=== PATIENT | male | born 1945 | race Caucasian/White ===

== ENCOUNTER 2018-06-19 16:50 | Inpatient (IN) | payer MEDICARE ==
[~2018-06-19] VITALS: Ht 172.7 cm; Wt 69.4 kg
[~2018-06-19 16:50] MED LIST: ASPI-515 PO; BIMA2.5D EACHEYE; CYCL1DRO OP; LISI5TAB7 PO; METO25TA35 PO; SIMV40TA PO; TICA90TA PO
[2018-06-19] MEDS ORDERED: ASPIRIN 81 MG TABLET CHEW ONE (17:43)
[2018-06-19 17:48] LABS: BASOPHILS # (AUTO) 0.06 x10^3/uL (0-0.1); BASOPHILS % (AUTO) 1 % (0-1); EOSINOPHILS # (AUTO) 0.12 x10^3/uL (0-0.4); EOSINOPHILS % (AUTO) 2 % (1-7); LYMPHOCYTES # (AUTO) 2.13 x10^3/uL (1-3.4); LYMPHOCYTES % (AUTO) 38 % (22-44); MD NO; MEAN CORPUSCULAR HEMOGLOBIN 33.1 pg (27.5-34.5); MEAN CORPUSCULAR VOLUME 97.4 fL (81-97); MEAN PLATELET VOLUME 9.4 fL (7.4-10.4); MONOCYTES # (AUTO) 0.53 x10^3/uL (0.2-0.8); MONOCYTES % (AUTO) 10 % (2-9); NEUTROPHILS # (AUTO) 2.77 x10^3/uL (1.8-6.8); NEUTROPHILS % (AUTO) 49 % (42-75); PLATELET COUNT 180 x10^3/uL (130-400); RED BLOOD COUNT 4.52 x10^6/uL (4.38-5.82)
[2018-06-19 18:00] LABS: ALANINE AMINOTRANSFERASE 25 U/L (12-78); ANION GAP 10 mmol/L (5-15); CALCIUM 8.9 mg/dL (8.5-10.1); CHLORIDE 103 mmol/L (98-107); CREATININE 1.31 mg/dL (0.7-1.3)
[2018-06-19] MEDS ORDERED: ASPIRIN 81 MG TABLET CHEW PO ONE (18:00)
[2018-06-19 18:04] LABS: ALKALINE PHOSPHATASE 68 U/L (45-117); BILIRUBIN,TOTAL 0.4 mg/dL (0.2-1.0); TOTAL PROTEIN 7.3 g/dL (6.4-8.2); TROPONIN I < 0.015 ng/mL (0.000-0.045)
[2018-06-19] MEDS ORDERED: SODIUM CHLORIDE 0.9% 1,000 ML IV SCH (19:11)
[2018-06-19] MEDS ORDERED: hydrALAzine 20 MG/ML, 1ML IVPush PRN (19:30)
[2018-06-19] MEDS ORDERED: POLYETHYLENE GLYCOL 17 GM PACKET PO PRN (19:30)
[2018-06-19] MEDS ORDERED: ACETAMINOPHEN 325 MG TABLET PO PRN (19:30)
[2018-06-19 21:42] VITALS: BP 123/89
[2018-06-20] MEDS ORDERED: TIMO1DRO2 EACHEYE (00:53)
[2018-06-20 02:48] VITALS: BP 99/59
[2018-06-20 02:57] LABS: MICROSCOPIC NOT IND
[2018-06-20 03:11] LABS: CULTURE INDICATED? NO
[2018-06-20 05:11] LABS: ANION GAP 8 mmol/L (5-15); CALCIUM 8.7 mg/dL (8.5-10.1); CHLORIDE 109 mmol/L (98-107); CREATININE 1.24 mg/dL (0.7-1.3)
[2018-06-20 05:14] LABS: TROPONIN I < 0.015 ng/mL (0.000-0.045)
[2018-06-20 08:21] VITALS: BP 119/73
[2018-06-20] MEDS: ASPIRIN 81 MG TABLET EC PO SCH (08:41)
[2018-06-20] MEDS ORDERED: REGADENOSON 0.4 MG/5 ML SYRINGE ONE (09:08)
[2018-06-20 14:45] VITALS: BP 143/80
[2018-06-20 14:46] VITALS: BP 122/74
[2018-06-20 18:46] VITALS: BP 146/80
[2018-06-21 03:01] VITALS: BP 108/70
[2018-06-21 06:52] VITALS: BP 122/78
[2018-06-21] MEDS: ASPIRIN 81 MG TABLET EC PO SCH (08:13)
[2018-06-21] MEDS ORDERED: SODIUM CHLORIDE 0.9% 1,000 ML IV ONE (08:14)
[2018-06-21] MEDS: EZETIMIBE 10 MG TABLET PO SCH (08:49)
[2018-06-21] MEDS: METOPROLOL SUCCINATE 25 MG TAB.ER.24H PO SCH (08:50)
[2018-06-21 12:16] VITALS: BP 134/79
[2018-06-21 19:10] VITALS: BP 121/73
[2018-06-21] MEDS: NIACIN 500 MG TABLET.ER PO SCH (20:50)
[2018-06-22 01:05] VITALS: BP 116/68
[2018-06-22 05:32] LABS: ALBUMIN 3.4 g/dL (3.4-5.0); ANION GAP 6 mmol/L (5-15); CALCIUM 8.6 mg/dL (8.5-10.1); CHLORIDE 109 mmol/L (98-107); CREATININE 1.19 mg/dL (0.7-1.3)
[2018-06-22] MEDS: METOPROLOL SUCCINATE 25 MG TAB.ER.24H PO SCH (05:53)
[2018-06-22 07:18] VITALS: BP 119/74
[2018-06-22] MEDS: CALCIUM CARBONATE 500 MG TAB.CHEW PO PRN ×2 (10:04→21:09)
[2018-06-22] MEDS: EZETIMIBE 10 MG TABLET PO SCH (10:25)
[2018-06-22] MEDS: ASPIRIN 81 MG TABLET EC PO SCH (10:26)
[2018-06-22 13:14] VITALS: BP 127/83
[2018-06-22] MEDS ORDERED: MIDAZOLAM 1 MG/ML, 5ML ONE (13:51)
[2018-06-22] MEDS ORDERED: BIVALIRUDIN 250 MG ONE (13:52)
[2018-06-22] MEDS ORDERED: FENTANYL PF 100 MCG/2ML ONE (13:52)
[2018-06-22] MEDS ORDERED: HEPARIN 1,000 UNITS/ML, 10ML ONE (13:52)
[2018-06-22] MEDS ORDERED: VERAPAMIL 2.5 MG/ML, 2ML ONE (13:52)
[2018-06-22] MEDS ORDERED: TICAGRELOR 90 MG TABLET ONE (13:52)
[2018-06-22] MEDS ORDERED: LIDOCAINE-MPF 2% ,5ML ONE (14:18)
[2018-06-22] MEDS: SODIUM CHLORIDE 0.9% 1,000 ML IV SCH ×2 (15:58→22:39)
[2018-06-22 19:07] VITALS: BP 112/67
[2018-06-22] MEDS: NIACIN 500 MG TABLET.ER PO SCH (21:09)
[2018-06-23 03:01] VITALS: BP 106/67
[2018-06-23] MEDS: METOPROLOL SUCCINATE 25 MG TAB.ER.24H PO SCH (05:47)
[2018-06-23] MEDS: SODIUM CHLORIDE 0.9% 1,000 ML IV SCH (05:48)
[2018-06-23 06:13] LABS: ALBUMIN 3.3 g/dL (3.4-5.0); ANION GAP 9 mmol/L (5-15); CALCIUM 8.6 mg/dL (8.5-10.1); CHLORIDE 109 mmol/L (98-107); CREATININE 1.28 mg/dL (0.7-1.3)
[2018-06-23 07:04] VITALS: BP 110/69
[2018-06-23] MEDS: EZETIMIBE 10 MG TABLET PO SCH (08:18)
[2018-06-23] MEDS: ASPIRIN 81 MG TABLET EC PO SCH (08:18)
[2018-06-23] MEDS ORDERED: CLOPIDOGREL 75 MG TABLET PO SCH (09:30)
[2018-06-23] MEDS ORDERED: NIAC500T PO (13:20)
[2018-06-23] MEDS ORDERED: EZET10TA18 PO (13:20)
[2018-06-23] MEDS ORDERED: CLOP75TA PO (13:20)
[2018-06-23] MEDS ORDERED: METO25TA91 PO (13:20)
== END 2018-06-23 14:15 | disposition home or self-care (01) | DRG 287 ==
LOC: SUATTDRO 19:11 → ED 19:44 → EDIP 20:18 → 5SO 21:13 → DCLOUNGE 06-23 14:00
PROVIDERS: ADMIT Hospitalist; ATTEND Hospitalist
PROC: 4A023N7 Measurement of Cardiac Sampling and Pressure, Left Heart, Percutaneous Approach (ICD-10-PCS; principal; 2018-06-22)
PROC: B2111ZZ Fluoroscopy of Multiple Coronary Arteries using Low Osmolar Contrast (ICD-10-PCS; 2018-06-22)
PROC: B2151ZZ Fluoroscopy of Left Heart using Low Osmolar Contrast (ICD-10-PCS; 2018-06-22)
PROC: B2181ZZ Fluoroscopy of Left Internal Mammary Bypass Graft using Low Osmolar Contrast (ICD-10-PCS; 2018-06-22)
PROC: B2131ZZ Fluoroscopy of Multiple Coronary Artery Bypass Grafts using Low Osmolar Contrast (ICD-10-PCS; 2018-06-22)
DX: T82.855A Stenosis of coronary artery stent, initial encounter (principal); I25.10 Atherosclerotic heart disease of native coronary artery without angina pectoris; R07.9 Chest pain, unspecified; N18.2 Chronic kidney disease, stage 2 (mild); J43.9 Emphysema, unspecified; I44.0 Atrioventricular block, first degree; K21.9 Gastro-esophageal reflux disease without esophagitis; H40.9 Unspecified glaucoma; E78.5 Hyperlipidemia, unspecified; I25.82 Chronic total occlusion of coronary artery; Z95.1 Presence of aortocoronary bypass graft; I25.2 Old myocardial infarction; Z95.5 Presence of coronary angioplasty implant and graft; Z90.79 Acquired absence of other genital organ(s); Z85.46 Personal history of malignant neoplasm of prostate; Z85.820 Personal history of malignant melanoma of skin; Z88.0 Allergy status to penicillin; Z79.82 Long term (current) use of aspirin; Z79.899 Other long term (current) drug therapy
CPT/HCPCS: 36415; 71046; 78452; 80048; 80053; 81003; 82040; 83735; 84484; 85025; 93005; 93017; 93306; 93459; 99156; 99285; C1769; C1894; G0378; J0583; J1644; J2250; J2785; J3010; J3490; A9502; C9898; J7030; Q9967

== ENCOUNTER → 2021-04-19 | Outpatient (CLI) | payer MEDICARE ==
[~2021-04-19] MED LIST changes: -ASPI-515 PO; +ASPI-963 PO; +CLOP75TA PO; +EZET10TA70 PO; +METO25TA91 PO; +NIAC500T PO; +REGADENOSON 0.4 MG/5 ML SYRINGE ONE; +TIMO1DRO2 EACHEYE
== END | disposition home or self-care (01) ==
LOC: CFH 12:51
PROVIDERS: ATTEND Internal Medicine Clinical Cardiac Electrophysiology
DX: I25.9 Chronic ischemic heart disease, unspecified (principal); R07.9 Chest pain, unspecified
CPT/HCPCS: 78452; 93017; A9502; J2785